=== PATIENT | male | born 1965 | race African-American/Black ===

== ENCOUNTER 2020-09-25 13:47 | Emergency (ER) | payer OTHER ==
[~2020-09-25] VITALS: Ht 172.7 cm; Wt 95.3 kg
[~2020-09-25 13:47] MED LIST: ROSU5TAB PO
--- NOTE | 2020-09-25 14:10 | NUR ---
PATIENT BIBSELF FOR C/O LQ ABDOMINAL PAIN, COSTIPATION X 4 DAYS. PT STATES ABDOMINAL PAIN IS 6/10. DENIES SOB. IN ROOM AIR. RESPIRATION REGULAR AND UNLABORED. WARM BLANKET PROVIDED FOR COMFORT. WILL CONTINUE TO MONITOR.
--- NOTE | 2020-09-25 14:15 | NUR ---
DR. GUADALUPE AT THE BEDSIDE.
[2020-09-25 14:35] LABS: BASOPHILS % (AUTO) 0.5 % (0.0-2.0); EOSINOPHILS % (AUTO) 0.3 % (0.0-6.0); HEMATOCRIT 40 % (39-51); LYMPHOCYTES # (AUTO) 1.9 /CMM (0.8-4.8); LYMPHOCYTES % (AUTO) 24.9 % (20.0-44.0); MEAN CORPUSCULAR HGB CONC 32 g/dl (31.0-36.0); MEAN CORPUSCULAR VOLUME 85 fL (80-96); MONOCYTES # (AUTO) 0.7 /CMM (0.1-1.30); MONOCYTES % (AUTO) 9.6 % (2.0-12.0); NEUTROPHILS % (AUTO) 64.7 % (43.0-81.0); PLATELET COUNT (AUTO) 377 /CMM (150-450); RED BLOOD CELL COUNT(AUTO) 4.75 MIL/uL (4.5-6.0); WHITE BLOOD COUNT (AUTO) 7.8 K/uL (4.3-11.0)
--- NOTE | 2020-09-25 14:38 | NUR ---
urine collected and took it to the lab.
[2020-09-25 14:55] LABS: ALBUMIN 3.7 g/dL (3.4-5.0); BILIRUBIN,DIRECT 0.1 mg/dL (0.0-0.2); BILIRUBIN,TOTAL 0.4 mg/dL (0.2-1.0); CREATININE 1.2 mg/dL (0.6-1.3); POTASSIUM 4.3 mmol/L (3.5-5.1)
[2020-09-25 15:09] LABS: BILIRUBIN,URINE Negative (NEGATIVE); COLOR,URINE YELLOW (YELLOW); LEUKOCYTE ESTERASE ,URINE Negative (NEGATIVE); NITRITE, URINE Negative (NEGATIVE); PROTEIN,URINE Negative (NEGATIVE); UGLUCOSE Negative (NEGATIVE); UROBILINOGEN,URINE 0.2 EU/dL (0.2)
[2020-09-25 15:36] LABS: BACTERIA,URINE None seen /HPF (None Seen); MUCUS,URINE Moderate /LPF (None Seen); SQUAMOUS EPITHELIAL CELL,UR Few /HPF (None Seen); WBC,URINE 0-2 /HPF (0-3)
[2020-09-25] MEDS ORDERED: IV NS 0.9% 250 ML IV ONE (15:50)
[2020-09-25] MEDS ORDERED: IOHEXOL-300 100 ML VIAL IV ONE (15:50)
--- NOTE | 2020-09-25 16:49 | NUR ---
SERGIO MAO WILL CALL US BACK IN A FEW MINS.
[2020-09-25] MEDS ORDERED: PIPERACILLIN /TAZOBACTAM 3.375 G in IV D5W 50 ML IV ONE (17:00)
--- NOTE | 2020-09-25 17:15 | NUR ---
COVID ANTIGEN ORDERED PER DR GUADALUPE.
--- NOTE | 2020-09-25 17:51 | NUR ---
COVID SWAB DONE AND TAKEN IT TO THE LAB.
[2020-09-25] MEDS ORDERED: METF-881 PO (17:52)
[2020-09-25] MEDS ORDERED: TAMS-12 PO (17:52)
[2020-09-25] MEDS ORDERED: HYDROCODONE/APAP 5/325MG TABLET PO PRN (18:30)
[2020-09-25] MEDS ORDERED: IV NS 0.9% 1,000 ML IV PRN (18:30)
[2020-09-25] MEDS ORDERED: ONDANSETRON HCL/PF 4 MG/2 ML VIAL IVP PRN (18:30)
[2020-09-25] MEDS ORDERED: Z GUARD REMEDY 2 OZ OINT TP PRN (18:30)
[2020-09-25] MEDS ORDERED: MAGNESIUM HYDROXIDE 30 ML UDC PO PRN (18:30)
[2020-09-25] MEDS ORDERED: ZOLPIDEM TARTRATE 5 MG TABLET PO PRN (18:30)
[2020-09-25] MEDS ORDERED: ACETAMINOPHEN 325 MG TABLET PO PRN (18:30)
[2020-09-25] MEDS ORDERED: MAG HYDROX/AL HYDROX/SIMETH 30 ML UDC PO PRN (18:30)
--- NOTE | 2020-09-25 18:42 | NUR ---
received a call from the lab regarding covid 19 result "negative".
--- NOTE | 2020-09-25 18:48 | NUR ---
COVID NEGATIVE. REQUESTED MED-SURG BED FROM [employer] PROFESSOR. WAITING FOR MED.
--- NOTE | 2020-09-25 19:58 | NUR ---
Patient does not wish to proceed with medical care recommended by JON Rodriges, Dr Cobian. Patient given information related to possible complications, up to and including , which could occur as a result of leaving the hospital at this time. Patient verbalizes understanding of risks involved due to leaving against medical advice. Patient has signed AMA form.
[2020-09-25 19:59] VITALS: BP 138/86
[2020-09-26] MEDS ORDERED: PIPERACILLIN /TAZOBACTAM 3.375 G in IV D5W 50 ML IV SCH
[2020-09-26] MEDS ORDERED: TAMSULOSIN 0.4 MG CAP.SR.24H PO SCH (09:00)
== END 2020-09-25 20:00 | disposition left against medical advice (07) ==
LOC: ER 13:50
DX: R10.9 Unspecified abdominal pain (principal); E11.9 Type 2 diabetes mellitus without complications; E78.5 Hyperlipidemia, unspecified; Z79.899 Other long term (current) drug therapy; Z79.84 Long term (current) use of oral hypoglycemic drugs; Z20.822 Contact with and (suspected) exposure to COVID-19
CPT/HCPCS: 36415; 74176; 74177; 80048; 80076; 81001; 83690; 85025; 87426; 96365; 99285; C9803; J2543; J7050; J7060; Q9967

== ENCOUNTER 2025-05-23 11:26 | Emergency (ER) | payer MEDICAID, OTHER ==
[~2025-05-23] VITALS: Ht 172.7 cm; Wt 90.7 kg
[~2025-05-23 11:26] MED LIST changes: +METF-881 PO; -ROSU5TAB PO; +TAMS-12 PO
[2025-05-23] MEDS: IV NS 0.9% 500 ML BAG IV ONE (12:07)
[2025-05-23 12:21] LABS: PLATELET COUNT (AUTO) 295 K/uL (150-450); RED BLOOD CELL COUNT(AUTO) 5.02 MIL/uL (4.5-6.0); RED CELL DISTRIBUTION WIDTH 14.5 % (11.5-15.0); WHITE BLOOD COUNT (AUTO) 9.5 K/uL (4.3-11.0)
[2025-05-23 12:27] LABS: CALCIUM, SERUM 9.2 mg/dL (8.5-10.1); CREATININE 1.2 mg/dL (0.6-1.3); SODIUM SERUM 136.0 mmol/L (136-145); UREA NITROGEN, BLOOD 18.0 mg/dL (7-18)
[2025-05-23 12:27] LABS: APPEARANCE,URINE CLEAR (CLEAR); BLOOD, URINE Negative Ery/uL (NEGATIVE); LEUKOCYTE ESTERASE ,URINE Negative (NEGATIVE); NITRITE, URINE NEGATIVE (NEGATIVE); UGLUCOSE >=1000 mg/dL (NEGATIVE)
[2025-05-23 12:33] LABS: ASPARTATE AMINOTRANSFERASE 7.0 U/L (15-37); TOTAL PROTEIN, SERUM 8.2 g/dL (6.4-8.2)
[2025-05-23] MEDS ORDERED: DOCU-141 PO (12:50)
[2025-05-23] MEDS ORDERED: AMOX-427 PO (12:50)
[2025-05-23 13:37] VITALS: BP 145/80; TEMP 98.3; O2SAT 99
== END 2025-05-23 13:38 | disposition home or self-care (01) ==
LOC: ER 11:35
DX: K57.32 Diverticulitis of large intestine without perforation or abscess without bleeding (principal); Z79.84 Long term (current) use of oral hypoglycemic drugs; Z98.890 Other specified postprocedural states
CPT/HCPCS: 99284; 74176; 85025; 80048; 83690; 80076; 81003; 36415; J7040

== ENCOUNTER 2025-07-02 17:10 | Emergency (ER) | payer MEDICAID ==
[~2025-07-02] VITALS: Ht 172.7 cm; Wt 90.7 kg
[~2025-07-02 17:10] MED LIST changes: +AMOX-427 PO; +DOCU-141 PO
[2025-07-02 17:26] VITALS: BP 145/71; TEMP 98.1; O2SAT 99
[2025-07-02] MEDS ORDERED: KETOROLAC TROMETHAMINE 15 MG/ML VIAL ONE (19:06)
[2025-07-02] MEDS ORDERED: METHOCARBAMOL (500MG) 500 MG TABLET ONE (19:06)
[2025-07-02] MEDS: KETOROLAC TROMETHAMINE 15 MG/ML VIAL IM ONE (19:11)
[2025-07-02] MEDS: METHOCARBAMOL (500MG) 500 MG TABLET PO ONE (19:11)
[2025-07-02] MEDS ORDERED: ACET-73 PO (20:25)
[2025-07-02] MEDS ORDERED: IBUP-1490 PO (20:25)
[2025-07-02] MEDS ORDERED: METH-647 PO (20:25)
== END 2025-07-02 20:51 | disposition home or self-care (01) ==
LOC: ER 17:13
DX: M25.512 Pain in left shoulder (principal); I10 Essential (primary) hypertension; E11.9 Type 2 diabetes mellitus without complications; Z79.84 Long term (current) use of oral hypoglycemic drugs; Z98.890 Other specified postprocedural states
CPT/HCPCS: 99283; 96372; 73030; J1885

== ENCOUNTER 2025-07-04 00:14 | Emergency (ER) | payer MEDICAID ==
[~2025-07-04] VITALS: Ht 172.7 cm; Wt 90.7 kg
[~2025-07-04 00:14] MED LIST changes: +ACET-73 PO; +IBUP-1490 PO; +METH-647 PO
[2025-07-04 00:25] VITALS: BP 150/81; TEMP 98.5; O2SAT 98
== END 2025-07-04 03:29 | disposition left against medical advice (07) ==
LOC: ER 01:07
DX: I10 Essential (primary) hypertension (principal); E11.9 Type 2 diabetes mellitus without complications; Z79.84 Long term (current) use of oral hypoglycemic drugs; Z98.890 Other specified postprocedural states